=== PATIENT | male | born 1990 | race Caucasian/White ===

== ENCOUNTER 2017-07-04 11:11 | Emergency (ER) | payer BC ==
[~2017-07-04] VITALS: Ht 182.9 cm; Wt 96.5 kg
[2017-07-04 11:29] VITALS: BP 142/83; PULSE 69; RESP 16; TEMP 98.5; O2SAT 98
--- NOTE | 2017-07-04 12:22 | PD ---
HPI Chief Complaint: Syncope/Near-Syncope Time Seen by Provider: 12:15 Travel History International Travel<30 days: No Contact w/Intl Traveler<30days: No Traveled to known affect area: No History of Present Illness HPI Patient presents with concerns of lightheadedness with mildly blurry vision and chills that lasts approximately 5-10 seconds. Symptom onset 3 months. Denies any extremity weakness. Reports that some days it doesn't occur and other days it might occur 4 times. 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 States symptoms can occur at any time during the day under any circumstance. Reports good fluid intake. States that it occasionally wakes him from sleep. No past medical history. Family history for diabetes in his grandfather and father. Currently has no PCP. Denies any chest pain shortness of breath urinary or bowel symptoms. Denies any nausea vomiting diarrhea or fever. Denies any dizziness or vertigo. Denies headache. Denies tachycardia. Denies seizure history. PFSH Past Medical History Medical History: Denies Significant Hx Diminished Hearing: No Tetanus Vaccination: Unknown Influenza Vaccination: No Past Surgical History Surgical History: No Previous Surgery Social History Alcohol Use: Yes (Occ) Tobacco Use: No Substance Use: No Allergies-Medications (Allergen,Severity, Reaction): Coded Allergies: No Known Allergies (Unverified , 07/04/17) Reported Meds & Prescriptions Reported Meds & Active Scripts Active No Active Prescriptions or Reported Medications Review of Systems General / Constitutional: No: Fever Eyes: Positive: Blurred Vision, No: Visual changes HENT: No: Headaches Cardiovascular: No: Chest Pain or Discomfort Respiratory: No: Shortness of Breath Gastrointestinal: No: Abdominal Pain Genitourinary: No: Dysuria Musculoskeletal: No: Pain Skin: No Rash Neurologic: No: Weakness Psychiatric: No: Depression Endocrine: No: Polydipsia Hematologic/Lymphatic: No: Easy Bruising Physical Exam Narrative GENERAL: Well-nourished, well-developed patient. SKIN: Focused skin assessment warm/dry. HEAD: Normocephalic. EYES: No scleral icterus. No injection or drainage. NECK: Supple, trachea midline. No JVD or lymphadenopathy. CARDIOVASCULAR: Regular rate and rhythm without murmurs, gallops, or rubs. RESPIRATORY: Breath sounds equal bilaterally. No accessory muscle use. GASTROINTESTINAL: Abdomen soft, non-tender, nondistended. MUSCULOSKELETAL: No cyanosis, or edema. BACK: Nontender without obvious deformity. No CVA tenderness. Data Data Last Documented VS Vital Signs Date Time Temp Pulse Resp B/P (MAP) Pulse Ox O2 Delivery O2 Flow Rate FiO2 07/04/17 11:29 98.5 69 16 142/83 (102) 98 Orders Orders Electrocardiogram (07/04/17 ) Complete Blood Count With Diff (07/04/17 12:15) Comprehensive Metabolic Panel (07/04/17 12:15) Urinalysis - C+S If Indicated (07/04/17 12:15) Ct Brain W/O Iv Contrast(Rout) (07/04/17 ) Labs Laboratory Tests Test 07/04/17 12:36 07/04/17 12:44 White Blood Count 7.1 TH/MM3 Red Blood Count 5.75 MIL/MM3 Hemoglobin 15.2 GM/DL Hematocrit 47.9 % Mean Corpuscular Volume 83.2 FL Mean Corpuscular Hemoglobin 26.4 PG Mean Corpuscular Hemoglobin Concent 31.8 % Red Cell Distribution Width 12.9 % Platelet Count 265 TH/MM3 Mean Platelet Volume 8.8 FL Neutrophils (%) (Auto) 67.7 % Lymphocytes (%) (Auto) 22.5 % Monocytes (%) (Auto) 7.8 % Eosinophils (%) (Auto) 1.4 % Basophils (%) (Auto) 0.6 % Neutrophils # (Auto) 4.8 TH/MM3 Lymphocytes # (Auto) 1.6 TH/MM3 Monocytes # (Auto) 0.6 TH/MM3 Eosinophils # (Auto) 0.1 TH/MM3 Basophils # (Auto) 0.0 TH/MM3 CBC Comment DIFF FINAL Differential Comment Blood Urea Nitrogen 21 MG/DL Creatinine 0.99 MG/DL Random Glucose 87 MG/DL Total Protein 7.7 GM/DL Albumin 3.9 GM/DL Calcium Level 8.7 MG/DL Alkaline Phosphatase 54 U/L Aspartate Amino Transf (AST/SGOT) 21 U/L Alanine Aminotransferase (ALT/SGPT) 19 U/L Total Bilirubin 0.6 MG/DL Sodium Level 140 MEQ/L Potassium Level 4.1 MEQ/L Chloride Level 104 MEQ/L Carbon Dioxide Level 28.8 MEQ/L Anion Gap 7 MEQ/L Estimat Glomerular Filtration Rate 91 ML/MIN Urine Collection Type CLEAN CATCH Urine Color YELLOW Urine Turbidity CLEAR Urine pH 7.0 Urine Specific [place] 1.027 Urine Protein NEG mg/dL Urine Glucose (UA) NEG mg/dL Urine Ketones NEG mg/dL Urine Occult Blood NEG Urine Nitrite NEG Urine Bilirubin NEG Urine Leukocyte Esterase NEG Urine Squamous Epithelial Cells 0-5 /hpf Urine Amorphous Sediment FEW Microscopic Urinalysis Comment CULT NOT INDICATED Urine Collection Time 1244 MDM Medical Decision Making Medical Screen Exam Complete: Yes Emergency Medical Condition: Yes Differential Diagnosis Near syncope, hypoglycemia, hyperglycemia, seizures, cranial mass, carotid disease, dysrhythmia Narrative Course Assessment and plan discussed with patient and at bedside. EKG revealed sinus bradycardia rate of 54 with a possible right ventricular conduction delay. Labs reviewed and within normal limits. No signs of diabetes. Last [address] 07/04/17 0000 Signed Impressions: Service Date/Time: Tuesday, July 04, 2017 12:54 - CONCLUSION: 1. No evidence of acute intracranial pathology. No masses are identified. Jeff Torre MD Diagnosis Primary Impression: Near syncope Patient Instructions: General Instructions Additional Instructions: Discussed EKG findings. Patient encouraged to follow-up with PCP/cardiology for further evaluation. Encouraged to return to emergency room with any onset of new symptoms. Encourage good fluid intake. Med/Other Pt SpecificInfo: No Meds Exist/No RX given Scripts No Active Prescriptions or Reported Meds Disposition: 01 DISCHARGE HOME Condition: Good Frankie Wiley MD Jul 04, 2017 12:21
[2017-07-04 12:57] LABS: AUTOMATED NEUTROPHIL # 4.8 TH/MM3 (1.8-7.7); BASOPHIL % 0.6 % (0.0-2.0); EOSINOPHIL # 0.1 TH/MM3 (0-0.4); EOSINOPHIL % 1.4 % (0.0-4.0); HEMATOCRIT 47.9 % (39.0-51.0); HEMOGLOBIN 15.2 GM/DL (13.0-17.0); LYMPH % 22.5 % (9.0-44.0); LYMPHOCYTE # 1.6 TH/MM3 (1.0-4.8); MEAN CELL VOLUME 83.2 FL (80.0-100.0); MEAN CORPUSCULAR HEMOGLOBIN 26.4 PG (27.0-34.0); MEAN CORPUSCULAR HGB CONC 31.8 % (32.0-36.0); MEAN PLATELET VOLUME 8.8 FL (7.0-11.0); MONO % 7.8 % (0.0-8.0); MONOCYTE # 0.6 TH/MM3 (0-0.9); NEUT % 67.7 % (16.0-70.0); PLATELET COUNT 265 TH/MM3 (150-450); RED BLOOD COUNT 5.75 MIL/MM3 (4.50-5.90); RED CELL DISTRIBUTION WIDTH 12.9 % (11.6-17.2); WHITE BLOOD COUNT 7.1 TH/MM3 (4.0-11.0)
[2017-07-04 12:58] LABS: BILIRUBIN, URINE NEG (NEG); BLOOD, URINE NEG (NEG); GLUCOSE,URINE NEG (NEG); KETONE, URINE NEG (NEG); NITRITE,URINE NEG (NEG); URINE LEUKOCYTE ESTERASE NEG (NEG)
[2017-07-04 13:04] LABS: CHLORIDE 104 MEQ/L (98-107); SODIUM (NA) 140 MEQ/L (136-145)
[2017-07-04 13:06] LABS: AMORPHOUS SEDIMENT, URINE FEW; SQUAMOUS EPITHELIAL CELL URINE 0-5 /hpf (0-5); URINE COLOR YELLOW (YELLW/STRAW)
[2017-07-04 13:08] LABS: CALCIUM 8.7 MG/DL (8.5-10.1)
[2017-07-04 13:09] LABS: ALBUMIN 3.9 GM/DL (3.4-5.0); BICARBONATE 28.8 MEQ/L (21.0-32.0); BLOOD UREA NITROGEN 21 MG/DL (7-18); GLUCOSE,RANDOM 87 MG/DL (74-106)
[2017-07-04 13:12] LABS: ALT (GPT) 19 U/L (12-78); AST (GOT) 21 U/L (15-37); CREATININE 0.99 MG/DL (0.60-1.30); GLOMERULAR FILTRATION RATE 91 ML/MIN (>89)
[2017-07-04 13:13] LABS: TOTAL BILIRUBIN ADULT 0.6 MG/DL (0.2-1.0)
[2017-07-04 13:14] LABS: TOTAL PROTEIN 7.7 GM/DL (6.4-8.2)
[2017-07-04 13:15] LABS: ALKALINE PHOSPHATASE 54 U/L (45-117)
--- NOTE | 2017-07-04 13:19 | RADRPT ---
EXAM DATE/TIME: 07/04/2017 12:54 [facility] COMPARISON: No previous studies available for comparison. INDICATIONS : Near syncope for 3 months. RADIATION DOSE: 64.36 CTDIvol (mGy) MEDICAL HISTORY : None SURGICAL HISTORY : None. ENCOUNTER: Initial ACUITY: 3 months PAIN SCALE: 0/10 LOCATION: cranial TECHNIQUE: Multiple contiguous axial images were obtained of the head. Using automated exposure control and adj ustment of the mA and/or kV according to patient size, radiation dose was kept as low as reasonably a chievable to obtain optimal diagnostic quality images. DICOM format image data is available electro nically for review and comparison. FINDINGS: CEREBRUM: The ventricles are normal for age. No evidence of midline shift, mass lesion, hemorrhage or acute in farction. No extra-axial fluid collections are seen. POSTERIOR FOSSA: The cerebellum and brainstem are intact. The 4th ventricle is midline. The cerebellopontine angle i s unremarkable. EXTRACRANIAL: The visualized portion of the orbits is intact. SKULL: The calvaria is intact. No evidence of skull fracture. CONCLUSION: 1. No evidence of acute intracranial pathology. No masses are identified. Jeff Torre MD on July 04, 2017 at 13:14 Board Certified Radiologist. This report was verified electronically.
--- NOTE | 2017-07-05 12:46 | EKG ---
Date Performed: 07/04/2017 Time Performed: 12:28:30 PTAGE: 26 years EKG: SINUS BRADYCARDIA POSSIBLE RIGHT VENTRICULAR CONDUCTION DELAY BORDERLINE ECG NO PREVIOUS TRACING DOCTOR: Ac Cabrera Interpretating Date/Time 07/05/2017 12:45:30
== END 2017-07-04 13:59 | disposition home or self-care (01) ==
LOC: PHED 11:11
DX: R55 Syncope and collapse (principal); R94.31 Abnormal electrocardiogram [ECG] [EKG]
CPT/HCPCS: 70450; 80053; 81001; 85025; 93005; 99285